=== PATIENT | female | born 1960 | race Caucasian/White ===

== ENCOUNTER 2016-09-03 20:33 | Emergency (ER) | payer OTHER ==
[~2016-09-03] VITALS: Ht 160 cm; Wt 81.6 kg
[2016-09-03] MEDS ORDERED: KETOROLAC TROMETHAMINE INJ 60 MG/2 ML VIAL IM STA (21:30)
[2016-09-03] MEDS ORDERED: DIAZEPAM 10 MG TABLET PO STA (21:30)
[2016-09-03] MEDS ORDERED: KETOROLAC TROMETHAMINE INJ 30 MG/ML VIAL ONE (21:37)
[2016-09-03] MEDS ORDERED: DIAZEPAM 5 MG TABLET ONE (21:37)
--- NOTE | 2016-09-03 21:45 | NUR ---
PT REC'D MEDICATION ORDERED. PT'S FAMILY IS AT THE BEDSIDE.
--- NOTE | 2016-09-03 23:00 | NUR ---
PT REC'D A HOT PACK TO THE LEFT LOWER BACK.
--- NOTE | 2016-09-03 23:17 | NUR ---
Patient discharged to home in stable condition. Written and verbal after care instructions given. Patient verbalizes understanding of instruction AND RX. PT AMBULATED OUT WITH A STEADY GAIT. VSS. PT'S DAUGHTER IS DRIVING PT HOME.
[2016-09-03 23:19] VITALS: BP 146/87
== END 2016-09-03 23:16 | disposition home or self-care (01) ==
LOC: ER 20:37
DX: M54.42 Lumbago with sciatica, left side (principal)
CPT/HCPCS: 72100; 96372; 99284; A4606; J1885; Z7610

== ENCOUNTER 2016-12-20 18:13 | Inpatient (IN) | payer OTHER ==
[~2016-12-20] VITALS: Ht 160 cm; Wt 84.8 kg
--- NOTE | 2016-12-20 | NUR ---
RN NOTES PATIENT ARRIVED IN THE UNIT VIA SID BEAUCHAMP, ON ROOM AIR SATURATING WELL. PT DENIES ANY SOB, PAIN, OR NAUSEA. NEURO CHECKS DONE WITH CARTOON ARTIST. PATIENT HAS GOOD STRENGTH ON BILATERAL ARMS AND LEGS, NO FACIAL DROOP, HAS CLEAR AND UNDERSTANDABLE SPEECH. LEFT EYELID TWITCHING IS NOTED. SKIN IS INTACT. PT HAS LEFT AC 18G AND RIGHT AC 18G SL, BOTH FLUSHED AND PATENT, NO S/S OF INFILTRATION/INFECTION. BED LOW AND LOCKED, SIDERAILS UP, CALL LIGHT WITHIN REACH. WAITING FOR MOBILE UNIT ASSISTANT FOR BRAIN MRI W/ AND W/O CONTRAST. WILL MONITOR AND DO FREQUENT NEURO CHECKS Addendum: 12/21/16 at 0036 by JOSEY HERNÁNDEZ RN DISREGARD NOTE DOCUMENTED ON THE WRONG TIME
--- NOTE | 2016-12-20 18:16 | NUR ---
PT AMBULATORY TO ER BED 12. C/O DIZZINESS SINCE THIS MORNING W/ LT EYE TWITCHING AND EXCESSIVE BLINKING. ALSO C/O GENERALIZED WEAKNESS. DENIES FEVER. PT IS AAO, GOWNED AND PLACED ON MONITOR. STABLE VITALS. AWAITING MD ESCOBAR.
--- NOTE | 2016-12-20 18:18 | NUR ---
DR WINTERS AT BEDSIDE FOR EVAL.
[2016-12-20] MEDS ORDERED: ONDANSETRON 4 MG TAB.RAPDIS SL ONE (18:30)
[2016-12-20] MEDS ORDERED: MECLIZINE HCL 12.5 MG TABLET PO ONE (18:30)
[2016-12-20] MEDS ORDERED: MECLIZINE HCL 25 MG TABLET ONE (18:34)
[2016-12-20] MEDS ORDERED: ONDANSETRON 4 MG TAB.RAPDIS ONE (18:34)
[2016-12-20 18:41] LABS: BASOPHILS % (AUTO) 0.4 % (0.0-2.0); EOSINOPHILS # (AUTO) 0.1 /CMM (0.0-0.7); HEMATOCRIT 39 % (33-45); HEMOGLOBIN 13.3 g/dL (11.5-14.8); LYMPHOCYTES # (AUTO) 2.6 /CMM (0.8-4.8); LYMPHOCYTES % (AUTO) 35.4 % (20.0-44.0); MEAN CORPUSCULAR HEMOGLOBIN 29 PG (26.0-33.0); MEAN CORPUSCULAR HGB CONC 34 g/dl (31.0-36.0); MEAN CORPUSCULAR VOLUME 84 fL (82-100); MONOCYTES # (AUTO) 0.4 /CMM (0.1-1.30); MONOCYTES % (AUTO) 5.6 % (2.0-12.0); NEUTROPHILS # (AUTO) 4.2 /CMM (1.8-8.9); NEUTROPHILS % (AUTO) 57.6 % (43.0-81.0); PLATELET COUNT (AUTO) 169 /CMM (150-450); RED BLOOD CELL COUNT(AUTO) 4.67 MIL/uL (4.0-5.2); WHITE BLOOD COUNT (AUTO) 7.3 K/uL (4.3-11.0)
--- NOTE | 2016-12-20 18:45 | NUR ---
RADIOLOGY AT BEDSIDE FOR CHEST XRAY.
--- NOTE | 2016-12-20 18:48 | NUR ---
PT TO RADIOLOGY FOR HEAD CT SCAN VIA [facility].
[2016-12-20 18:52] LABS: CALCIUM, SERUM 8.5 mg/dL (8.5-10.1); CARBON DIOXIDE 31 mmol/L (21-32); CHLORIDE 106 mmol/L (98-107); CREATININE 0.7 mg/dL (0.6-1.3); GLUCOSE 125 mg/dL (74-106); POTASSIUM 3.5 mmol/L (3.5-5.1); SODIUM SERUM 141 mmol/L (136-145); UREA NITROGEN, BLOOD 18 mg/dL (7-18)
[2016-12-20 18:55] LABS: INR 0.96 (0.87-1.13)
[2016-12-20 18:58] LABS: ALANINE AMINOTRANSFERASE 26 U/L (12-78); ALBUMIN 3.7 g/dL (3.4-5.0); ALKALINE PHOSPHATASE 51 U/L (46-116); ASPARTATE AMINOTRANSFERASE 15 U/L (15-37); BILIRUBIN,DIRECT 0.1 mg/dL (0.0-0.2); BILIRUBIN,TOTAL 0.5 mg/dL (0.2-1.0); TOTAL PROTEIN, SERUM 6.8 g/dL (6.4-8.2)
[2016-12-20 19:00] LABS: TROPONIN I < 0.017 ng/mL (0.00-0.056)
--- NOTE | 2016-12-20 19:09 | NUR ---
CALLED DR SONIA PULIDO FOR NEUROSURGICAL CONSULT, TRANSFERRED CALL TO DR WINTERS
--- NOTE | 2016-12-20 19:12 | NUR ---
CALLED RADIOLOGY FOR STAT MRI
--- NOTE | 2016-12-20 19:15 | NUR ---
CALLED DR ALBER CHAMBERLAIN FOR PANEL ADMISSION, TRANSFERRED CALL TO DR WINTERS
[2016-12-20] MEDS ORDERED: LABETALOL 20 MG/4 ML VIAL ONE (19:16)
--- NOTE | 2016-12-20 19:29 | NUR ---
18g left ac iv started. medicated pt as ordered
[2016-12-20] MEDS ORDERED: LABETALOL 20 MG/4 ML VIAL IV ONE (19:30)
--- NOTE | 2016-12-20 19:33 | NUR ---
PRESCRIPTION CLERK LENSES WILL BE IN AT 8PM.
--- NOTE | 2016-12-20 19:40 | NUR ---
CALLED NURSING HEALTH EDUCATION COORDINATOR FOR ICU BED
--- NOTE | 2016-12-20 19:42 | NUR ---
ICU 260
--- NOTE | 2016-12-20 19:50 | NUR ---
RN NOTES RECEIVED REPORT FROM LUNCH TRUCK DRIVERJOE HASSAN FOR THE PATIENT'S AMBAR
--- NOTE | 2016-12-20 19:59 | NUR ---
REPORT GIVEN TO JOSEY DIAZ FOR AMBAR. TRANSPORTED PT TO ICU BED WITHOUT INCIDENT
[2016-12-20 20:00] VITALS: BP 153/80
--- NOTE | 2016-12-20 20:00 | NUR ---
RN NOTES PATIENT ARRIVED IN THE UNIT VIA SID BEAUCHAMP, ON ROOM AIR SATURATING WELL. PT DENIES ANY SOB, PAIN, OR NAUSEA. NEURO CHECKS DONE WITH DUST BOX WORKER. PATIENT HAS GOOD STRENGTH ON BILATERAL ARMS AND LEGS, NO FACIAL DROOP, HAS CLEAR AND UNDERSTANDABLE SPEECH. LEFT EYELID TWITCHING IS NOTED. SKIN IS INTACT. PT HAS LEFT AC 18G AND RIGHT AC 18G SL, BOTH FLUSHED AND PATENT, NO S/S OF INFILTRATION/INFECTION. BED LOW AND LOCKED, SIDERAILS UP, CALL LIGHT WITHIN REACH. WAITING FOR WELDER PRODUCTION LINE ARC FOR BRAIN MRI W/ AND W/O CONTRAST. WILL MONITOR AND DO FREQUENT NEURO CHECKS
[2016-12-20 20:10] VITALS: BP 153/80
[2016-12-20 21:42] VITALS: BP 158/87
[2016-12-20] MEDS ORDERED: SIMVASTATIN 40 MG TABLET ONE (21:50)
[2016-12-20] MEDS: SIMVASTATIN 40 MG TABLET PO SCH (21:52)
[2016-12-20 21:57] LABS: CHOLESTEROL 193 mg/dL (<200); HDL CHOLESTEROL 48 mg/dL (40-60); LDL 118 mg/dL (0-99); TRIGLYCERIDES 108 mg/dL (30-150)
[2016-12-20 22:00] VITALS: BP 151/65
--- NOTE | 2016-12-20 22:00 | NUR ---
RN NOTES DR CAMPO IN PATIENT ROOM TO ASSESS THE PATIENT. PER MD'S NEURO ASSESSMENT OF THE PATIENT, PT CAN HAVE FOOD AND SBP OF 160-170 IS OK TO KEEP PERFUSION OF THE BRAIN.
[2016-12-20 23:00] VITALS: BP 159/95
[2016-12-20 23:10] LABS: INR 0.96 (0.87-1.13); PROTHROMBIN TIME 10.2 SECS (9.5-12.7)
[2016-12-21] VITALS (24 sets, daily range): BP systolic 92–171; BP diastolic 39–97
--- NOTE | 2016-12-21 00:30 | NUR ---
RN NOTES PATIENT'S DAUGHTER NOTIFIED US ABOUT THE PATIENT'S RIGHT EYE THAT SEEMED TO HAVE AN ABNORMAL MOVEMENT. NEURO CHECK AND VISUAL ASSESSMENT PROVIDED. BOTH EYES ARE BRISK AND REACTIVE TO LIGHT. PT IS NOT COMPLAINING OF ANY VISUAL CHANGES. NO FACIAL DROOP NOTED. SPEECH REMAINS INTACT. BILATERAL ARM AND LEGS HAVE GOOD STRENGTH. VERIFIED NEURO CHECKS WITH THE WAREHOUSE SHIPPING SUPERVISOR.
--- NOTE | 2016-12-21 06:30 | NUR ---
RN CLOSING NOTES PT REMAINS STABLE OF THE MOMENT. ALL DUE MEDS GIVEN, AM CARE PROVIDED. WILL ENDORSE CONTINUITY OF CARE TO AM RN
--- NOTE | 2016-12-21 07:29 | NUR ---
ICU/RN: INITIAL NOTES,AM RECEIVED REPORT FROM NIGHT NURSE. RECEIVED PT ALERT, AWAKE, ORIENTED TO PERSON, PLACE AND TIME. PT ABLE TO FOLLOW ALL COMMANDS. NEUROLOGICALLY INTACT. SOME EYE TWITCH AND NUMBNESS NOTED IN LIP; HOWEVER, SPEECH CLEAR AND UNDERSTANDABLE, NO S/S OF WEAKNESS. WILL CONTINUE TO CLOSELY MONITOR AND ASSESS. PIV PATENT AND INTACT. NO S/S OF INFECTION OR INFILTRATION NOTED. MRI DONE, RESULTS PENDING. PT ABLE TO AMBULATE. SAFETY MEASURES TAKEN, BED IN LOW POSITION, SIDE RAILS UP, CALL LIGHT WITHIN REACH.
[2016-12-21] MEDS ORDERED: IOHEXOL-300 100 ML VIAL IV ONE (10:02)
[2016-12-21] MEDS ORDERED: CT SWABBABLE VALVE TRANS SET 1 EA INFUS.SET MC ONE (10:02)
[2016-12-21] MEDS ORDERED: IV NS 0.9% 250 ML IV ONE (10:02)
--- NOTE | 2016-12-21 10:30 | NUR ---
ICU/RN: AT BEDSIDE. RECEIVED ORDERS FOR CT CHEST, ABDOMEN AND PELVIS, ALONG WITH LUMBAR PUNCTURE. ALL QUESTIONS ANSWERED BY MD. FAMILY UNSURE IF THEY WANT TO PROCEED WITH LUMBAR PUNCTURE. THEY WILL DECIDE AFTER CT RESULTS COME IN. WILL FOLLOW UP.
--- NOTE | 2016-12-21 11:00 | NUR ---
ICU/RN: PT TAKEN TO CT OF CHEST, ABDOMEN, AND PELVIS WITH CONTRAST. CONSENT SIGNED AND PLACED IN CHART. PT TRANSFERRED TO CT PER ACLS GUIDELINES. NO DISTRESS NOTED. PT TOLERATED WELL.
[2016-12-21] MEDS: LISINOPRIL (20MG) 20 MG TABLET PO SCH (13:58)
--- NOTE | 2016-12-21 14:45 | NUR ---
ICU/RN: PT UNDERSTANDS THE NEED FOR LUMBAR PUNCTURE AND DECIDED TO GO AHEAD WITH PROCEDURE. CONSENT SIGNED AND IN CHART. RADIOLOGIST GONE FOR THE DAY, WILL GO AHEAD WITH THE PROCEDURE EARLY IN AM.
[2016-12-21] MEDS ORDERED: GADOVERSETAMIDE 2.5 MMOL/5 ML VIAL ONE (16:16)
--- NOTE | 2016-12-21 19:12 | NUR ---
ICU/RN ENDING NOTES,AM REPORT ENDORSED TO NIGHT NURSE FOR CONTINUATION OF CARE. ALL NEEDS MET. PT ON ROOM AIR. NO DISTRESS. PT WILL HAVE LUMBAR PUNCTURE IN AM, CONSENT IN CHART. BED IN LOW POSITION, SIDE RAILS UP, CALL LIGHT WITHIN REACH. PT NEURO STATUS INTACT, RIGHT FACIAL MUSCLE DROOP NOTED.
--- NOTE | 2016-12-21 19:30 | NUR ---
RN INITIAL NOTES RECEIVED PT AWAKE ON BED, A/O X4, LEFT EYELID TWITCHING AND RIGHT FACIAL DROOP NOTED. BILATERAL ARMS AND LEGS HAVE GOOD STRENGTH. SPEECH IS INTACT. ON ROOM SATURATING WELL. PT IS CONTINENT AND ABLE TO WALK TO THE BATHROOM WITH A STEADY GAIT. RIGHT AC 20G SL IS FLUSHED AND PATENT, NO S/S OF INFILTRATION/INFECTION, DRESSING CDI. BED LOW AND LOCKED, SIDERAILS UP, CALL LIGHT WITHIN REACH. WILL CONTINUE TO DO FREQUENT NEURO CHECKS AND CONTINUE TO MONITOR
--- NOTE | 2016-12-21 21:10 | NUR ---
RN NOTES 6 YEAR-OLD VISITOR CAME WITH THE APPROVAL OF THE NURSING LANE ATTENDANT. PATIENT AND FAMILY ARE AWARE OF THE RISKS OF THE CHILD VISITING IN ICU.
[2016-12-21] MEDS: SIMVASTATIN 40 MG TABLET PO SCH (21:21)
[2016-12-21] MEDS ORDERED: ONDANSETRON HCL/PF 4 MG/2 ML VIAL ONE (22:15)
[2016-12-21] MEDS ORDERED: HYDROCODONE/APAP 5/325MG 1 EACH TABLET ONE (22:16)
[2016-12-21] MEDS ORDERED: HYDROCODONE/APAP 5/325MG 1 EACH TABLET PO PRN (22:30)
[2016-12-21] MEDS ORDERED: ONDANSETRON HCL/PF 4 MG/2 ML VIAL IV ONE (22:30)
[2016-12-22] VITALS (18 sets, daily range): BP systolic 104–163; BP diastolic 61–98
--- NOTE | 2016-12-22 06:10 | NUR ---
RN CLOSING NOTES PT REMAINS STABLE OF THE MOMENT. ALL DUE MEDS GIVEN, AM CARE PROVIDED. WILL ENDORSE CONTINUITY OF CARE TO AM RN
--- NOTE | 2016-12-22 08:00 | NUR ---
ICU/RN AM SHIFT INITIAL NOTES RECEIVED PT AWAKE IN BED WITH DAUGHTER AT BEDSIDE. PT ON ROOM AIR WITH 94% O2 SATURATION, LUNG SOUNDS CLEAR. ON TELE WITH SINUS RHYTHM, HR 70. IV SITE PATENT, SL. PER REPORT OF CHARGE NURSE WITH PENDING LUMBAR PUNCTURE PROCEDURE, CONSENT SIGNED BUT HELD, FAMILY NEEDED FOR INFORMATION REGARDING PROCEDURE, PER PT'S DAUGHTER TO KEPT NPO JUST IN CASE TO DECIDE THIS MORNING. PT STABLE. SCHEDULED AM MEDS TO BE GIVEN. CL WITHIN REACHED AND SAFETY MAINTAINED. ON GOING MONITORING.
[2016-12-22] MEDS: LISINOPRIL (20MG) 20 MG TABLET PO SCH (08:42)
--- NOTE | 2016-12-22 09:20 | NUR ---
ICU/RN DR. LOCK PER PT'S REQUEST DR. LOCK SPOKE TO PT AND FAMILY MEMBER IN PERSON REGARDING LUMBAR PUNCTURE PROCEDURE. PT STILL HAS NOT DECIDED ON PROCEDURE.
--- NOTE | 2016-12-22 09:56 | NUR ---
ICU/RN OFF RADIOLOGY - LP PT LEFT ICU UNIT VIA WHEELCHAIR IN STABLE CONDITION FOR LUMBAR PUNCTURE PROCEDURE. ACCOMPANIED BY PT'S DAUGHTER AND ICU NURSE.
--- NOTE | 2016-12-22 10:42 | NUR ---
ICU/RN BACK ON FLOOR PT BACK ON ICU, S/P LUMBAR PUNCTURE. PT TOLERATED PROCEDURE. WITH VERBAL ORDERS FROM DR. LOCK TO PLACE PT ON BACK FOR [address] TO CONTA[address] DR[address] CORRALES TO ASK FOR SPECIFIC TEST TO BE PERFORMED ON SPECIMEN. LEFT MESSAGE ON DR. CORRALES'S PHONE EXCHANGE. ON GOING MONITORING.
--- NOTE | 2016-12-22 12:00 | NUR ---
ICU/RN NOON ROUNDS NO ACUTE DISTRESS NOTED, PT DENIES HAVING HEADACHE, REMAINED ON SUPINE POSITION. PT HAS SEEN BY DR. CORRALES NO NEW ORDERS RECEIVED, CSF SPECIMENS WAS SENT TO LAB. PT IS COMFORTABLE WITH (2) ADDITIONAL FAMILY MEMBERS AT BEDSIDE. ON GOING MONITORING.
[2016-12-22 13:44] LABS: CSF PROTEIN 45.1 mg/dL (15-45)
--- NOTE | 2016-12-22 14:35 | NUR ---
ICU/RN REPORT TO - 3 [place] TELE REPORT GIVEN TO NURSE JEFFRIES. PT TO BE DOWNGRADED TO TELE AND TO BE TRANSFERRED TO ROOM 329.
--- NOTE | 2016-12-22 14:53 | NUR ---
ICU/RN PARTIAL RESULT - CSF SPECIMEN PARTIAL RESULTS OF CSF RELAYED TO DR. CORRALES'S PHONE EXCHANGE.
[2016-12-22] MEDS: PANTOPRAZOLE 40 MG TABLET.DR PO SCH (15:30)
--- NOTE | 2016-12-22 15:30 | NUR ---
STRIP CATCHER OPENING NOTE PATIENT WAS TRANSFERRED FROM ICU AT 1530. APPEARS STABLE, DENIES SOB/CHEST PAIN. CHEST RAISING EQUALLY BILATERALLY. LUNGS CLEAR TO AUSCULTATION /PERCUSSION. SKIN IS INTACT. OBSERVABLE SKIN LESION BEHIND THE R/EAR REPORTED TO BE INTERMITTENTLY APPEARING FOR THE LAST 3-4 MONTHS. FACIAL ASYMMETRY. FACE DROOPING ON THE RIGHT. DENIES PAIN AT THE MOMENT. FAMILY PRESENT AT THE BEDSIDE. ALL NEEDS ARE WITHIN THE REACH. MONITOR Q 2 H OR LESS NEEDED.
--- NOTE | 2016-12-22 15:33 | NUR ---
ICU/DESIGN MAINTENANCE ENGINEER - 3 COVENTRY TELE PT TRANSFERRED TO 3 COVENTRY TELEMETRY FLOOR VIA WHEELCHAIR WITHOUT INCIDENT, ENDORSED TO NURSE JEFFRIES TO CONTINUE CARE.
--- NOTE | 2016-12-22 15:45 | NUR ---
ROUGH RICE GRADER CALLED AND LEFT A MESSAGE FOR DR. KEYES TO CALL BACK THE PATIENT'S DAUGHTER PER PATIENT/FAMILY REQUEST FOR CSF ANALYSIS INTERPRETATION. WAS TOLD THAT WILL CALL THE PATIENT'S DAUGHTER LATER TODAY. PATIENT PLACED ON AN EXTERNAL SECURITY RISK ANALYST. SINUS RHYTHM.
--- NOTE | 2016-12-22 17:08 | NUR ---
POWER SHOVEL OPERATOR HELPER NOTES PATIENT AGREEING TO TAKE MEDICATION AT THIS TIME. EDUCATED ON USAGE, SIDE EFFECTS.
[2016-12-22] MEDS: predniSONE 20 MG TABLET PO SCH (17:11)
--- NOTE | 2016-12-22 18:19 | NUR ---
CAR SALES CONSULTANT NOTES PER MD ALBER PEREZ TO ORDER ARTIFICIAL TEARS PRN Q8H 1 DROP EACH EYE FOR PATIENT NEEDED
[2016-12-22] MEDS: POLYVINYL ALCOHOL 15 ML BOTTLE EACHEYE PRN (18:39)
--- NOTE | 2016-12-22 19:30 | NUR ---
SOCIAL WELFARE CLERK INITIAL NOTE RECEIVED PT AWAKE AND ALERT, ORIENTED X3, GHANAIAN SPEAKING WITH DAUGHTER AT BEDSIDE TRANSLATING, PT IS DISPLAYING DROOPING OF RIGHT SIDE OF FACE, AND IS UNABLE TO CLOSE RIGHT EYE COMPLETELY, ABLE TO ELEVATE BOTH ARMS EQUALLY AND STRONG HAND GRASP ON BOTH HANDS, MD AWARE OF PT'S CONDITION, PT TO BE SEEN BY DOCTOR STEPHY TOMORROW MORNING PER DAUGHTERS REQUEST, DAUGHTER IS REQUESTING LP INTERPRETATION BY MD IN PERSON, PT IS STABLE, CLEAN/DRY AND COMFORTABLE, FREQUENT NEURO CHECKS AND SAFETY MEASURES MAINTAINED AT ALL TIMES, NEEDS WILL BE ANTICIPATED AND ATTENDED TO PROMPTLY.
[2016-12-22] MEDS: SIMVASTATIN 40 MG TABLET PO SCH (22:10)
[2016-12-22] MEDS: VALACYCLOVIR HCL 500 MG TABLET PO SCH (22:10)
[2016-12-23] VITALS: BP 156/84
[2016-12-23 04:00] VITALS: BP 125/75
--- NOTE | 2016-12-23 06:35 | NUR ---
ICE SCRAPER CLOSING PT REMAINED STABLE DURING FILTER CLOTH MAKER, NO SIGNIFICANT CHANGE OF CONDITION NOTED, WILL ENDORSE TO AM SHIFT FOR AMBAR.
[2016-12-23 06:57] VITALS: BP 127/73
--- NOTE | 2016-12-23 07:30 | NUR ---
TELE/RN OPENING NOTES PT. IS IN BED AWAKE, A&OX4. ON TELE MONITOR READING SINUS RHYTHM 61 BPM. NO SOB, BREATHING ON ROOM AIR UNLABORED. IV ACCESS ON RIGHT ANTECUBITAL SITE. BED IS IN LOW POSITION, 2 SIDE RAILS UP, AND INSTRUCTED PT. TO USE CALL LIGHT FOR ASSISTANCE, WITHIN REACH. WILL CONTINUE TO ASSESS AND MONITOR.
[2016-12-23] MEDS: PANTOPRAZOLE 40 MG TABLET.DR PO SCH (10:57)
[2016-12-23] MEDS: LISINOPRIL (20MG) 20 MG TABLET PO SCH (10:58)
[2016-12-23] MEDS: VALACYCLOVIR HCL 500 MG TABLET PO SCH (10:58)
[2016-12-23] MEDS: predniSONE 20 MG TABLET PO SCH (10:58)
[2016-12-23] MEDS: POLYVINYL ALCOHOL 15 ML BOTTLE EACHEYE PRN (11:33)
--- NOTE | 2016-12-23 15:45 | NUR ---
RN NOTES DISCHARGE PT. WAS DISCHARGED HOME WITH SELF-CARE IN MEDICALLY STABLE CONDITION. PT. LEFT WITH FAMILY BY WHEELCHAIR. PT. WAS PROVIDED DISCHARGE PAPER INSTRUCTIONS, PT. SIGNED PAPERS AND VERBALIZED UNDERSTANDING. A DISC OF RADIOLOGY RESULTS WERE GIVEN. BELONGINGS LIST CHECKED, AND SIGNED. ID BAND, AND IV WAS REMOVED WITHOUT COMPLICATIONS. PT. LEFT WITH PRESCRIPTION AND DISCHARGE FOLDER.
[2016-12-23 16:00] VITALS: BP 149/99
== END 2016-12-23 16:49 | disposition home or self-care (01) | DRG 48 ==
LOC: ER 18:14 → ICU 19:48 → MED 12-22 15:16 → TELE 12-22 18:37
PROC: B01BYZZ Fluoroscopy of Spinal Cord using Other Contrast (ICD-10-PCS; principal; 2016-12-22)
PROC: 009U3ZX Drainage of Spinal Canal, Percutaneous Approach, Diagnostic (ICD-10-PCS; principal; 2016-12-22)
DX: G51.0 Bell's palsy (principal); Q28.3 Other malformations of cerebral vessels; K76.0 Fatty (change of) liver, not elsewhere classified; D18.03 Hemangioma of intra-abdominal structures; E03.9 Hypothyroidism, unspecified; K21.9 Gastro-esophageal reflux disease without esophagitis; R03.0 Elevated blood-pressure reading, without diagnosis of hypertension; V89.2XXS Person injured in unspecified motor-vehicle accident, traffic, sequela; E66.9 Obesity, unspecified; Z68.33 Body mass index [BMI] 33.0-33.9, adult; Z71.3 Dietary counseling and surveillance
CPT/HCPCS: 36415; 62270; 70450-TC; 70553-TC; 71010-TC; 71260-TC; 72193-TC; 74160-TC; 80048-TC; 80061-TC; 80076-TC; 82164; 82945-TC; 84155-TC; 84443-TC; 84484-TC; 85025-TC; 85385-TC; 85730-TC; 87070-TC; 87081-TC; 88312-TC; 89051-TC; 97001-TC; 97110-TC; 97116-TC; 97530-TC; A4606; A9579; J2405; J3490; J7050; J8597; Q0162; Q9967; Z7610

== ENCOUNTER 2017-08-07 16:52 | Emergency (ER) | payer OTHER ==
[~2017-08-07] VITALS: Ht 165.1 cm; Wt 77.1 kg
[2017-08-07 17:04] VITALS: BP 132/70
[2017-08-07 17:58] LABS: CALCIUM, SERUM 9.1 mg/dL (8.5-10.1); CREATININE 0.6 mg/dL (0.6-1.3); POTASSIUM 3.8 mmol/L (3.5-5.1)
[2017-08-07] MEDS ORDERED: hydrOXYzine HCL INJ 50 MG/ML VIAL IM ONE (18:00)
[2017-08-07 18:03] LABS: ALBUMIN 3.6 g/dL (3.4-5.0); BILIRUBIN,TOTAL 0.4 mg/dL (0.2-1.0); TOTAL PROTEIN, SERUM 7.1 g/dL (6.4-8.2)
== END 2017-08-07 18:23 | disposition home or self-care (01) ==
LOC: ER 16:53
DX: L29.9 Pruritus, unspecified (principal); Z85.828 Personal history of other malignant neoplasm of skin
CPT/HCPCS: 36415; 80053-TC; A4606; J3410; Z7610

== ENCOUNTER 2018-06-07 21:01 | Emergency (ER) | payer OTHER ==
--- NOTE | 2018-06-07 21:27 | NUR ---
CALLED PT NAME X3 IN WAITING ROOM. NO ONE RESPONDED. WILL FOLLOW UP.
--- NOTE | 2018-06-07 22:24 | NUR ---
CALLED PT IN WAITING ROOM TO TRIAGE, NO ANSWER. WILL FOLLOW UP
--- NOTE | 2018-06-07 22:40 | NUR ---
CALLED PT TO BE TRIAGED 3X. NO ANSWER
== END 2018-06-07 23:15 | disposition left against medical advice (07) ==
LOC: ER 21:06
DX: Z53.21 Procedure and treatment not carried out due to patient leaving prior to being seen by health care provider (principal)

== ENCOUNTER 2019-05-07 18:09 | Emergency (ER) | payer OTHER ==
[~2019-05-07] VITALS: Ht 160 cm; Wt 83.9 kg
--- NOTE | 2019-05-07 18:30 | NUR ---
bib grand daughter, from home, 59 year old female c/o r leg pain x 1.5 months 03/08 ps, denies injury/trauma, on gabapentin, oxycodone and baclofen. alert and oreinted x4, breathing even and unlabored with no distress noted. skin warm to touch. waiting to be seen by .
--- NOTE | 2019-05-07 18:58 | NUR ---
us tech at bedside
--- NOTE | 2019-05-07 19:29 | NUR ---
Kurt EID at bedside for re-evaluation
--- NOTE | 2019-05-07 20:04 | NUR ---
Patient discharged to home in stable condition. Written and verbal after care instructions given. Patient verbalizes understanding of instruction. ambulatory with a steady gait. Pt daughter at bedside to take pt home.
[2019-05-07 20:05] VITALS: BP 149/76
== END 2019-05-07 20:06 | disposition home or self-care (01) ==
LOC: ER 18:20
DX: M79.661 Pain in right lower leg (principal); I10 Essential (primary) hypertension; G51.0 Bell's palsy; Z85.828 Personal history of other malignant neoplasm of skin
CPT/HCPCS: 93971-TC

== ENCOUNTER 2019-07-25 09:54 | Emergency (ER) | payer OTHER ==
[~2019-07-25] VITALS: Ht 177.8 cm; Wt 79.4 kg
--- NOTE | 2019-07-25 10:25 | NUR ---
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 On room air, breathing evenly and unlabored. connected to the monitor and pulse ox.kept comfortable, will continue to monitor accordingly.
[2019-07-25 10:26] LABS: BASOPHILS % (AUTO) 0.5 % (0.0-2.0); EOSINOPHILS % (AUTO) 2.3 % (0.0-6.0); HEMATOCRIT 42 % (33-45); HEMOGLOBIN 14.3 g/dL (11.5-14.8); LYMPHOCYTES # (AUTO) 2.5 /CMM (0.8-4.8); MEAN CORPUSCULAR HGB CONC 34 g/dl (31.0-36.0); MEAN CORPUSCULAR VOLUME 85 fL (82-100); MONOCYTES # (AUTO) 0.4 /CMM (0.1-1.30); NEUTROPHILS # (AUTO) 3.5 /CMM (1.8-8.9); NEUTROPHILS % (AUTO) 53.2 % (43.0-81.0); PLATELET COUNT (AUTO) 179 /CMM (150-450); RED BLOOD CELL COUNT(AUTO) 4.93 MIL/uL (4.0-5.2); WHITE BLOOD COUNT (AUTO) 6.6 K/uL (4.3-11.0)
[2019-07-25 10:52] LABS: CARBON DIOXIDE 29 mmol/L (21-32); CHLORIDE 104 mmol/L (98-107); POTASSIUM 3.3 mmol/L (3.5-5.1); SODIUM SERUM 141 mmol/L (136-145)
[2019-07-25 10:53] LABS: CALCIUM, SERUM 8.7 mg/dL (8.5-10.1); CREATININE 0.7 mg/dL (0.6-1.3); GLUCOSE 118 mg/dL (74-106); UREA NITROGEN, BLOOD 22 mg/dL (7-18)
[2019-07-25] MEDS ORDERED: POTASSIUM CHLORIDE 20 MEQ TAB.PRT.SR PO ONE ×2 (11:28→11:30)
[2019-07-25 12:54] VITALS: BP 145/67
--- NOTE | 2019-07-25 12:55 | NUR ---
Patient discharged to home in stable condition. Written and verbal after care instructions given. Patient verbalizes understanding of instruction.
== END 2019-07-25 12:54 | disposition home or self-care (01) ==
LOC: ER 09:58
DX: R42 Dizziness and giddiness (principal); Z85.828 Personal history of other malignant neoplasm of skin
CPT/HCPCS: 36415; 71045-TC; 80048-TC; 84484-TC; 85025-TC; 85730-TC

== ENCOUNTER 2019-10-26 15:07 | Emergency (ER) | payer OTHER ==
[~2019-10-26] VITALS: Ht 160 cm; Wt 87.5 kg
--- NOTE | 2019-10-26 15:20 | NUR ---
BIB Daughter from Home "Left Shoulder pain" Denies injury/trauma. Patient a/ox4, breathing even and unlabored, no sob noted. needs attended, kept comfortable.
[2019-10-26] MEDS ORDERED: IBUPROFEN 600 MG TABLET PO ONE (15:54)
[2019-10-26] MEDS ORDERED: ACETAMINOPHEN ES 500 MG TABLET ONE (15:54)
[2019-10-26] MEDS: ACETAMINOPHEN ES 500 MG TABLET PO ONE (15:55)
[2019-10-26] MEDS: IBUPROFEN 600 MG TABLET PO ONE (15:55)
--- NOTE | 2019-10-26 17:12 | NUR ---
Patient discharged to home in stable condition. Written and verbal after care instructions given. Patient verbalizes understanding of instruction.
[2019-10-26 17:13] VITALS: BP 144/88
== END 2019-10-26 17:14 | disposition home or self-care (01) ==
LOC: ER 15:13
DX: I10 Essential (primary) hypertension (principal); J90 Pleural effusion, not elsewhere classified; M25.512 Pain in left shoulder
CPT/HCPCS: 73030-TC

== ENCOUNTER 2020-12-11 10:57 | Emergency (ER) | payer OTHER ==
[~2020-12-11] VITALS: Ht 157.5 cm; Wt 90.7 kg
--- NOTE | 2020-12-11 11:16 | NUR ---
BIB Daughter from Home "started having really bad PUENTE around 3am NOT going away/persistent. Feel more on Left side". Rates headacke 11/06. Denies vomiting. In room air and denies SOB. Respiration regular and unlabored. Attached to the monitor. Warm blanket provided for comfort. Will continue to monitor the patient.
[2020-12-11] MEDS ORDERED: METOCLOPRAMIDE HCL 10 MG/2 ML VIAL IV ONE (11:30)
[2020-12-11] MEDS ORDERED: KETOROLAC TROMETHAMINE INJ 30 MG/ML VIAL IV ONE (11:30)
[2020-12-11] MEDS ORDERED: ACETAMINOPHEN ES 500 MG TABLET PO ONE (11:30)
[2020-12-11] MEDS ORDERED: METOCLOPRAMIDE HCL 10 MG/10 ML UDC ONE (11:44)
[2020-12-11] MEDS ORDERED: KETOROLAC TROMETHAMINE INJ 30 MG/ML VIAL ONE (11:44)
[2020-12-11] MEDS ORDERED: ACETAMINOPHEN ES 500 MG TABLET ONE (11:44)
[2020-12-11] MEDS ORDERED: METOCLOPRAMIDE HCL 10 MG/2 ML VIAL ONE (11:45)
[2020-12-11 11:47] LABS: BASOPHILS % (AUTO) 0.7 % (0.0-2.0); EOSINOPHILS % (AUTO) 1.3 % (0.0-6.0); HEMATOCRIT 40 % (33-45); HEMOGLOBIN 13.4 g/dL (11.5-14.8); LYMPHOCYTES # (AUTO) 2.2 K/uL (0.8-4.8); LYMPHOCYTES % (AUTO) 37.1 % (20.0-44.0); MEAN CORPUSCULAR HGB CONC 34 g/dl (31.0-36.0); MEAN CORPUSCULAR VOLUME 85 fL (82-100); MONOCYTES # (AUTO) 0.4 K/uL (0.1-1.30); MONOCYTES % (AUTO) 6.2 % (2.0-12.0); NEUTROPHILS # (AUTO) 3.3 K/uL (1.8-8.9); NEUTROPHILS % (AUTO) 54.7 % (43.0-81.0); PLATELET COUNT (AUTO) 174 K/uL (150-450); RED BLOOD CELL COUNT(AUTO) 4.63 MIL/uL (4.0-5.2)
[2020-12-11 12:07] LABS: CALCIUM, SERUM 8.4 mg/dL (8.5-10.1); CREATININE 0.6 mg/dL (0.6-1.3); POTASSIUM 3.8 mmol/L (3.5-5.1)
[2020-12-11] MEDS ORDERED: IV NS 0.9% 250 ML IV ONE (12:19)
[2020-12-11] MEDS ORDERED: IOHEXOL-350 100 ML VIAL IV ONE (12:19)
[2020-12-11] MEDS ORDERED: CT SWABBABLE VALVE TRANS SET 1 EA INFUS.SET MC ONE (12:20)
[2020-12-11 14:02] VITALS: BP 128/76
--- NOTE | 2020-12-11 14:02 | NUR ---
Patient discharged to home in stable condition. Written and verbal after care instructions given. Patient verbalizes understanding of instruction.
== END 2020-12-11 14:02 | disposition home or self-care (01) ==
LOC: ER 11:01
DX: Q28.3 Other malformations of cerebral vessels (principal); R51.9 Headache, unspecified
CPT/HCPCS: 36415; 70496; 80048; 85025; 96374; 96375; 99285; J1885; J2765; J7050; Q9967; J8597